=== PATIENT | male | born 1970 | race Caucasian/White ===

== ENCOUNTER 2016-10-23 07:21 | Inpatient (IN) | payer BC ==
[2016-10-23] MEDS ORDERED: NS 0.9% 1000 ML* 1,000 ML IV ONE (07:29)
[2016-10-23] MEDS ORDERED: Aspirin Low Dose CHEW TAB* 81 MG PO ONE (07:29)
[2016-10-23] MEDS ORDERED: Ondansetron INJ* 2 MG/ML VIAL IV ONE (07:29)
[2016-10-23 07:44] LABS: Hematocrit 46 % (42-52); Hemoglobin 15.6 g/dl (14.0-18.0); Mean Corpuscular HGB Conc 34 g/dl (31-36); Mean Corpuscular Hemoglobin 31 pg (27-31); Mean Corpuscular Volume 92 fL (80-94); Mean Platelet Volume 8 um3 (7.4-10.4); Red Blood Count 5.02 10^6/ul (4.0-5.4); Red Cell Distribution Width 13 % (10.5-15); White Blood Count 9.8 10^3/ul (3.5-10.8)
[2016-10-23 08:00] LABS: BUN/Creatinine Ratio 13.8 (8-20); Calcium 9.3 mg/dL (8.6-10.3); EGFR African American 81.1 (>60); EGFR Non-African American 63.1 (>60); Globulin 2.8 g/dL (2-4); Potassium 4.1 mmol/L (3.5-5.0); Total Bilirubin 0.4 mg/dL (0.2-1.0); Total Protein 6.8 g/dL (6.4-8.9)
[2016-10-23 08:05] LABS: Troponin I 0.03 ng/mL (<0.04)
--- NOTE | 2016-10-23 08:21 | RAD ---
INDICATION: Chest pain COMPARISON: None TECHNIQUE: An AP portable view obtained at 0755 hours is submitted. FINDINGS: Bones/Soft Tissues: There are no acute bony findings. Cardiomediastinal: The cardiomediastinal silhouette is normal. Lungs: There are no infiltrates. Pleura: There are no pleural effusions. Other: None IMPRESSION: NO ACTIVE DISEASE.
[2016-10-23 08:34] LABS: T4 5.2 g/dL (6.09-12.23)
[2016-10-23 10:41] LABS: Urine Bilirubin Negative (Negative); Urine Glucose Negative (Negative); Urine Nitrite Negative (Negative)
--- NOTE | 2016-10-23 11:19 | ED ---
Danna Jo Matthew, scribed for Luke Benitez MD on 10/23/16 at 0737 . HPI Chest Pain - HPI Summary HPI Summary: A 46 y/o male presents to the ED with sudden chest pain since this morning. The pain is described as pressure, initially rated 7/10 in severity, but currently rated 3-4/10 in severity. The patient went to his [employer] workout class at 05: 00 this morning, which hes been doing for the past year. The patient states that he did a heavy workout, which ended in cardio. After the workout, he developed sudden chest pain while sitting in his car. He drove home and his symptoms mildly improved; however he smoked a cigarette while at home, which worsened his chest pain. Associated symptoms include nausea, vomiting, and SOB which has improved since onset. The patients chest pain improved after two nitroglycerin. FHx of CAD and father had NM in his 50s. - History of Current Complaint Time Seen by Provider: 10/23/16 07:25 Onset/Duration: Started Hours Ago, Atraumatic, Still Present Timing: Constant Initial Severity: Moderate Current Severity: Moderate Pain Intensity: 4 Pain Scale Used: 0-10 Numeric Chest Pain Location: Mid Sternal Chest Pain Radiates: No Character: Pressure/Squeezing Aggravating Factor(s): Other: - Smoking Alleviating Factor(s): NTG 123 Associated Signs and Symptoms: Positive: Chest Pain, Shortness of Breath - which has improved since onset, Nausea, Vomiting - Allergy/Home Medications Allergies/Adverse Reactions: Allergies Allergy/AdvReac Type Severity Reaction Status Date / Time No Known Allergies Allergy Verified 10/23/16 10:14 PMH/Surg Hx/FS Hx/Imm Hx Previously Healthy: Yes Infectious Disease History: No Infectious Disease History: Denies: Traveled Outside the [place] in Last 30 Days - Family History Known Family History: Positive: Cardiac Disease - Social History Alcohol Use: Weekly Substance Use Type: Reports: None Smoking Status (MU): Current Every Day Smoker Type: Cigarettes Amount Used/How Often: 1 ppd Review of Systems Constitutional: Negative Eyes: Negative ENT: Negative Positive: Chest Pain Positive: Shortness Of Breath - initally but has since resolved Positive: Vomiting, Nausea Genitourinary: Negative Musculoskeletal: Negative Skin: Negative Neurological: Negative Psychological: Normal All Other Systems Reviewed And Are Negative: Yes Physical Exam - Summary Physical Exam Summary: VITAL SIGNS: Reviewed. GENERAL: Patient is a well developed and nourished male who is lying comfortable in the stretcher. Patient is not in any acute respiratory distress. HEAD AND FACE: No signs of trauma. No ecchymosis, hematomas or skull depressions. No sinus tenderness. EYES: PERRLA, EOMI x 2, No injected conjunctiva, no nystagmus. EARS: Hearing grossly intact. Ear canals and tympanic membranes are within normal limits. MOUTH: Oropharynx within normal limits. NECK: Supple, trachea is midline, no adenopathy, no JVD, no carotid bruit, no c- spine tenderness, neck with full ROM. CHEST: Symmetric, no tenderness at palpation LUNGS: Clear to auscultation bilaterally. No wheezing or crackles. CVS: Regular rate and rhythm, S1 and S2 present, no murmurs or gallops appreciated. ABDOMEN: Soft, non-tender. No signs of distention. No rebound no guarding, and no masses palpated. Bowel sounds are normal. EXTREMITIES: FROM in all major joints, no edema, no cyanosis or clubbing. NEURO: Alert and oriented x 3. No acute neurological deficits. Speech is normal and follows commands. SKIN: Dry and warm Triage Information Reviewed: Yes Vital Signs On Initial Exam: Initial Vitals Temp Pulse Resp BP Pulse Ox 96.1 F 65 22 153/133 98 10/23/16 07:26 10/23/16 07:26 10/23/16 07:26 10/23/16 07:26 10/23/16 07:26 Vital Signs Reviewed: Yes - [place] Coma Scale Coma Scale Total: 15 Diagnostics - Vital Signs Vital Signs Temp Pulse Resp BP Pulse Ox 10/23/16 07:30 66 14 116/46 97 10/23/16 07:29 69 19 97 10/23/16 07:28 96.1 F 58 20 153/133 90 10/23/16 07:27 153/133 10/23/16 07:26 96.1 F 65 22 153/133 98 - Laboratory Result Diagrams: 10/23/16 07:35 10/23/16 07:35 Lab Statement: Any lab studies that have been ordered have been reviewed, and results considered in the medical decision making process. - Radiology CXR Xray Interpretation: No Acute Changes - IMPRESSION: NO ACTIVE DISEASE. Radiology Interpretation Completed By: Radiologist - EKG 07:27 Cardiac Rate: Bradycardia - 56 bpm EKG Rhythm: Sinus Bradycardia EKG Interpretation: No ST elevation 09:59 Cardiac Rate: Bradycardia - 48 bpm EKG Rhythm: Sinus Bradycardia EKG Interpretation: No STEMI Chest Pain Course/Dx - Course Assessment/Plan: A 46 y/o male presents to the ED with sudden chest pain since this morning. The pain is described as pressure, initially rated 7/10 in severity, but currently rated 3-4/10 in severity. The patient went to his [employer] workout class at 05:00 this morning, which hes been doing for the past year. The patient states that he did a heavy workout, which ended in cardio. After the workout, he developed sudden chest pain while sitting in his car. He drove home and his symptoms mildly improved; however he smoked a cigarette while at home, which worsened his chest pain. Associated symptoms include nausea, vomiting, and SOB which has improved since onset. The patients chest pain improved after two nitroglycerin. FHx of CAD and father had NM in his 50s. Test results WNL except for CO2 of 21, creatinine of 1.23, glucose 141, troponin of 0.03 and T4 of 5.20. EKG showed sinus bradycardia without ST elevation. In the ED course, the patient was given an aspirin and two nitroglycerins. He reported that after the second NTG his symptoms improved. CXR showed no acute cardiopulmonary disease. D-dimer is less than 200 therefore I have a low suspicion for PE. However, the patients chest pain started after cardiovascular excursive. The pain started on exertion with nausea, vomiting, diaphoresis, and SOB. The patient has no significant co-morbidities, however he is a smoker therefore we need to r/o ACS. The patient developed another episode of chest pain in the ED. We did a second EKG which showed sinus bradycardia without ST. The pain subsided by itself and hes asymptomatic at this time. I discussed the exam findings with Dr. Dorado who accepted the patient for further work-up and management. The patient is hemodynamically stable and A&Ox3. - Chest Pain Differential Diagnosis/HQI/PQRI: Acute NM, ACS, Angina, CHF, Chest Wall, GI Disease, Lower Respiratory Infection, Pulmonary Edema - Diagnoses Provider Diagnoses: Chest pain - Provider Notifications Discussed Care Of Patient With: Dr. Dorado (Hospitalist) at 09:52 -- Notified of patient's history and will admit the patient. Discharge - Discharge Plan Condition: Stable Disposition: ADMITTED TO [facility] Referrals: Patrick Montes MD [Primary Care Provider] - The documentation as recorded by the Danna hercules Matthew accurately reflects the service I personally performed and the decisions made by , Luke Benitez MD.
[2016-10-23] MEDS ORDERED: Acetaminophen TAB* 325 MG PO PRN (11:51)
[2016-10-23] MEDS ORDERED: Ondansetron INJ* 2 MG/ML VIAL IV PRN (11:58)
[2016-10-23] MEDS ORDERED: Nicotine GUM* 2 MG PO PRN (12:05)
[2016-10-23] MEDS ORDERED: Nicotine Inhaler* 10 MG AMP INH PRN (12:05)
[2016-10-23] MEDS: Nicotine PATCH 21 MG/24 HR* PATCH TRANSDERM SCH (12:42)
--- NOTE | 2016-10-23 16:37 | HP ---
HOSPITAL MEDICINE HISTORY AND PHYSICAL: DATE OF ADMISSION: 10/23/16 PRIMARY CARE PHYSICIAN: Dr. Montes. ATTENDING PHYSICIAN: Dr. Tre Dorado *(dictation provided by Peggy Fischer NP). CHIEF COMPLAINT: Chest pain. HISTORY OF PRESENT ILLNESS: Mr. Velasco is a 46-year-old male with no significant past medical history, who presents today to the hospital with concern for chest discomfort. Mr. Velasco states that he has been doing [employer] for the past year. Today, there was a particularly intense workout. Immediately, thereafter on the way home, he developed chest discomfort. He states that it was mid sternal and described as "like someone was sitting on my chest." The patient states that the pain continued until he got home. It seemed to get better, but then he did smoke a cigarette. He is currently a pack-a-day smoker. After smoking, he developed worsening pain. As the pain increased in intensity, he discussed with his who strongly encouraged him to come to the emergency room. The patient called the EMS. While with EMS, he was given 2 nitroglycerin after which he developed some nausea and diaphoresis. They also noted his blood pressure was low systolically in the 60s after the nitroglycerin. By the time he arrived to the emergency room, his first blood pressure was noted to be 153 systolically. He states that he is feeling comfortable at this time and no chest discomfort but that he just feels tired. He denies any other acute complaints. No recent, fevers, chills, cough, nausea other than the described after nitroglycerin, or abdominal pain. In the emergency room, Mr. Velasco had EKG which showed a sinus rhythm to a sinus bradycardia with no evidence of ischemia. His first troponin was 0.03 and his second troponin was 0.06. PAST MEDICAL HISTORY: None. MEDICATIONS: None. ALLERGIES: None. FAMILY HISTORY: The patient reports that his dad had a heart attack in his 50s. His paternal grandfather also had a heart attack and is now . He also has uncles who had heart attack. His mom has a history of diabetes and breast cancer. SOCIAL HISTORY: The patient is a long-term pack-a-day smoker. He quit drinking up a [id number]-half ago. He denies any drug use. Lives with his , who is his healthcare proxy. REVIEW OF SYSTEMS: A 14-point review of systems was completed with Mr. Velasco and all those mentioned above were negative. PHYSICAL EXAMINATION GENERAL: Mr. Velasco is sitting up in the bed. He is in no acute distress. VITAL SIGNS: Temperature 97.0, pulse rate 48, respiratory rate 16, O2 saturation 96% on room air, blood pressure 119/70. LUNGS: Clear to auscultation bilaterally with no accessory muscle use and good aeration. HEART: S1, S2. No murmur, rub, or gallop, and regular. ABDOMEN: Soft, nontender with bowel sounds positive x4. EXTREMITIES: No cyanosis or edema. NEURO: He is alert and oriented x3. He moves all extremities equally. There is no facial asymmetry or focal weakness. Extraocular movements are intact. SKIN: Intact. DIAGNOSTIC STUDIES/LAB DATA: WBC 9.8, hemoglobin 15.6, hematocrit 46, platelet count 183. PTT 24.1, D-dimer less than 200. Sodium 135, potassium 4.1 , chloride 107, serum bicarbonate 21, BUN 17, creatinine 1.23, glucose 141, lactic acid 1.6. Troponin 0.03 at 7:35 and then repeat at 10:30 is 0.06. BNP is 16. TSH is 2.0. Urine shows no evidence of infection. EKG shows sinus rhythm to sinus bradycardia with no evidence of ischemia. Chest x-ray shows no acute intrathoracic abnormality. ASSESSMENT AND PLAN: Mr. Velasco is a 46-year-old male with no significant past medical history presents today to the hospital after experiencing chest pain after an intense workout session. This pain was associated with nausea and diaphoresis but this was in the setting of nitroglycerin administration. Our plans are for observation in the hospital for the followin. Chest pain. The patient does have risk factors of smoking and positive family history. He does exercise regularly without chest pain, but I think that he is a high-risk candidate given his positive troponin. He should stay in the hospital overnight for stress testing in the a.m. He will further troponins as needed until they peak. He will have EKG with his next troponin and with any chest pain, he will go on for an exercise stress test tomorrow. 2. Smoking. The patient will have nicotine replacement as needed. Smoking cessation was stressed. 3. DVT prophylaxis. Early mobility. 4. Disposition. To telemetry floor. TIME SPENT: Approximately 60 minutes was spent on the admission of this patient , more than half time spent with him at the bedside reviewing the events leading up to this hospitalization, performing the physical examination, and reviewing the plan of care. PEGGY FISCHER NP CC: Dr. Montes* [id number]/[facility] #: [id number] JOHN
[2016-10-23] MEDS ORDERED: Atorvastatin* 80 MG TAB PO ONE (17:54)
[2016-10-23] MEDS ORDERED: Heparin VIAL(*) 5000 UNITS/ML VIAL (FIVE THOUSAND) IV SCH (18:00)
[2016-10-23] MEDS ORDERED: Heparin DRIP 25,000 UNITS(*) 25,000 UNITS/500 ML BAG IVPB SCH (18:00)
[2016-10-23] MEDS ORDERED: Ticagrelor* 90 MG TAB PO ONE (18:19)
[2016-10-23] MEDS: Metoprolol Tartrate TAB* 25 MG PO SCH ×2 (18:46→19:18)
[2016-10-23 19:05] LABS: Hematocrit 43 % (42-52); Hemoglobin 14.3 g/dl (14.0-18.0); Mean Corpuscular HGB Conc 33 g/dl (31-36); Mean Corpuscular Hemoglobin 31 pg (27-31); Mean Corpuscular Volume 92 fL (80-94); Mean Platelet Volume 8 um3 (7.4-10.4); Red Blood Count 4.69 10^6/ul (4.0-5.4); Red Cell Distribution Width 13 % (10.5-15); White Blood Count 11.3 10^3/ul (3.5-10.8)
--- NOTE | 2016-10-23 21:57 | CONS ---
CONSULTATION REPORT: DATE OF CONSULT: 10/23/16 REASON FOR CONSULTATION: Chest pressure and elevated troponins. CHIEF COMPLAINT: Chest pressure. HISTORY OF PRESENT ILLNESS: Mr. Velasco is a 46-year-old gentleman with no prior cardiac history. He is an active smoker. The patient was in his usual state of health. He went to [employer] which he has been doing for a year, had an aggressive workout, was driving home and developed pressure in the substernal and across the chest area as if something was sitting on the chest. When he got home, things were better. He had a cigarette and then, things got worse again. So, he presented to the emergency room. In the emergency room, the patient's initial ECG and troponin were unremarkable and he was admitted for observation. Throughout the day, the troponins have progressively elevated, mildly and I was called at 5:45 to see the patient. The patient states in the ambulance he was given nitroglycerin which initially led to diaphoresis and nausea and he is not exactly sure when or what led to resolution of his chest discomfort, but has not recurred. Other than the symptoms with the nitroglycerin, he denies associated symptoms such as dyspnea, neck, jaw, arm pain, or diaphoresis. MEDICATIONS: He was on no outpatient medications. ALLERGIES: The patient has no known drug allergies. FAMILY HISTORY: Strongly positive for early atherosclerotic heart disease. His father had a heart attack in his 50s and he has multiple uncles, cousins. He had a brother who 13 years ago of a motor vehicle accident and no other siblings. 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 He smokes a pack and a half or greater a day, is . REVIEW OF SYSTEMS: Negative for recent infectious symptoms. No fevers, chills , sweats, or change of bowel or bladder habits. His appetite has been good. He denies orthopnea or PND. He is energetic in the daytime and trying to get in shape. All other review of systems is unremarkable. PHYSICAL EXAM: The patient is 6 feet 2 inches, weighs 250 pounds with a BMI of 32. On arrival to the emergency room at 7:26 this morning, the patient was afebrile. Blood pressure 153/133, pulse was 65 and regular, oxygen saturation 98 % on room air. Currently, on medications, the patient's heart rate is 54, respiratory rate is 16, blood pressure 118/61, oxygen saturation 98% on room air , and he is afebrile. General Appearance: Stocky, overweight, but fit- appearing middle-aged gentleman seated in no acute distress. Psychologically, calm, cooperative, pleasant. Neurologically, awake, alert, and oriented to person, place, and time. Cranial nerves II through XII intact. Grossly normal sensory and motor function in the upper and lower extremities and normal gait. Skin: Moist, diaphoretic diffusely (it was hot in the room). HEENT: Pupils are equal and round. Mucous membranes moist. Neck without increased JVP appreciated. Good carotid pulses. No audible bruits. Breath sounds had some inspiratory and expiratory wheezes, more prominent anteriorly then posteriorly. Coronary: Good distant S1, S2. Regular without murmurs or rubs. Abdomen: No epigastric discomfort. No hepatosplenomegaly or masses. Lower extremities have good femoral pulses and good radial pulses and the distal lower extremities are nonedematous. DIAGNOSTIC STUDIES/LAB DATA: Sodium 135, potassium 4.1, chloride 107, bicarb 21 , creatinine 1.23, glucose 141, magnesium 2.0. AST of 17, ALT 18. Troponin #1 0.03, troponin #2 0.06, troponin #3 0.32, and troponin #4 1.34. BNP of 16. TSH 2.0. Thyroxine 5.2. PTT 24.1. D-dimer less than 200. White count 9.8, hemoglobin 15.6, platelets 183. Urinalysis unremarkable. No evidence of infection. . EKG at 0727 this morning shows normal sinus rhythm, 56 beats a minute, QRS axis +75 with normal AV and IV conduction times, subtle upward coving STs in the inferior leads, suggestive of ischemia. ECG #2 at 0959 showed normalization of the coving in the inferior leads. Sinus bradycardia 48 beats a minute, normal STs. ECG done at 1451 shows sinus bradycardia, 48 beats a minute, QRS axis +90, normal AV and IV conduction times, and normal STs. Corrected QT interval 402 milliseconds Chest x-ray shows no active disease. SUMMARY: Sebastian Velasco is a 46-year-old gentleman who presented with a good story for angina with chest pressure after exercise like someone sitting on the chest and mild elevation in troponins. His initial ECG had subtle ST changes and he has atherosclerotic risks of active smoking, strong family history of atherosclerotic heart disease. He appears to have some metabolic syndrome with hyperglycemia (nonfasting). He is overweight. His blood pressure was high on arrival and we will need to check his lipids. I feel he should get a heart catheterization in the morning and the indications , risks,and benefits of the procedure were discussed in depth with the patient and he is amenable to proceeding. I agree with aggressive medical management in place including heparin, aspirin, beta-blockade, and initiation of statin empirically. After discussion with the local telephone operator, we will also initiate Brilinta. I told the patient he had to stop smoking, but he may need assistance. Additional recommendations will be made pending his clinical course and response to the above measures and the results of his cardiac catheterization. He may benefit from an echocardiogram if a ventriculogram is not done with the cardiac catheterization. CC: Dr. Montes; Hospitalist Service* [id number]/[facility] #: [id number] [facility]ERSohan
[2016-10-24] MEDS ORDERED: diPHENhydraMINE PO* 25 MG PO ONE (07:14)
[2016-10-24] MEDS ORDERED: Diazepam TAB(*) 5 MG PO ONE (07:14)
[2016-10-24] MEDS ORDERED: NS 0.9% 1000 ML* 1,000 ML IV SCH ×2 (07:15→10:45)
[2016-10-24] MEDS: Ticagrelor* 90 MG TAB PO SCH ×2 (07:34→21:19)
[2016-10-24] MEDS: Aspirin Low Dose CHEW TAB* 81 MG PO SCH (07:34)
[2016-10-24] MEDS: Metoprolol Tartrate TAB* 25 MG PO SCH ×2 (07:34→21:19)
[2016-10-24 07:40] LABS: Troponin I 5.93 ng/mL (<0.04)
[2016-10-24] MEDS ORDERED: fentaNYL* 50 MCG/ML 2 ML VIAL (100 MCG VIAL) ONE (07:54)
[2016-10-24] MEDS ORDERED: Lidocaine 1% INJ* 10 MG/ML 30 ML SDV ONE (07:55)
[2016-10-24] MEDS ORDERED: Iohexol 350 (CONTRAST) 200 ML MDV IV ONE ×3 (07:55→10:11)
[2016-10-24] MEDS ORDERED: VERAPAMIL 2.5 MG/ML 4 ML VIAL ONE (07:55)
[2016-10-24] MEDS ORDERED: Heparin(*) 1000 UNIT/ML 10 ML VIAL CATH LAB IV ONE (07:55)
[2016-10-24] MEDS ORDERED: Midazolam* 1 MG/ML 5 ML VIAL (5 MG) ONE (07:55)
[2016-10-24] MEDS ORDERED: Heparin 2 UNITS/ML IVPREMIX* 3,000 ML IV ONE (07:55)
[2016-10-24] MEDS ORDERED: nitroGLYCERIN DRIP* 250 ML ONE (07:55)
[2016-10-24] MEDS: Nicotine PATCH 21 MG/24 HR* PATCH TRANSDERM SCH (08:26)
[2016-10-24] MEDS ORDERED: Bivalirudin(*) 250 MG VIAL ONE (08:56)
[2016-10-24] MEDS ORDERED: Aspirin TAB* 325 MG PO SCH (09:00)
[2016-10-24] MEDS ORDERED: Eptifibatide (*) 0 ML ONE (09:46)
[2016-10-24] MEDS ORDERED: Eptifibatide IV (Load dose)(*) 2 MG/ML 10 ml VIAL ONE (09:50)
[2016-10-24] MEDS ORDERED: NitroPRUSSide* 25 MG/ML 2 ML VIAL IVPB ONE (10:01)
[2016-10-24] MEDS ORDERED: Nitroglycerin TAB 0.4 MG* 0.4 MG TAB SL PRN (10:35)
[2016-10-24] MEDS ORDERED: oxyCODONE/Acetamin 5/325 MG* TAB PO PRN (10:37)
[2016-10-24] MEDS ORDERED: Zolpidem TAB* 5 MG PO PRN (10:37)
--- NOTE | 2016-10-24 16:19 | PN ---
Subjective Date of Service: 10/24/16 Interval History: No chest pain, cough, SOB. No new c/o. Objective Active Medications: Acetaminophen (Tylenol Tab*) 650 mg PO Q6H PRN PRN Reason: PAIN Aspirin (Aspirin Low Dose Tab*) 81 mg PO 0700 [facility] Last Admin: 10/24/16 07:34 Dose: 81 mg Atorvastatin Calcium (Lipitor*) 80 mg PO 2100 ONE Stop: 10/24/16 21:01 Heparin Sodium (Porcine) (Heparin Vial(*)) 0 units IV .PER PROTOCOL [facility] PRN Reason: Protocol Last Admin: 10/23/16 18:22 Dose: 8,500 units Heparin Sodium/Dextrose (Heparin Drip 25,000 Units(*)) 25,000 units in 500 mls @ 0 mls/hr IVPB .PER RATE [facility]; Per Protocol PRN Reason: Protocol Last Admin: 10/23/16 18:22 Dose: 18 mls/hr Sodium Chloride (Ns 0.9% 1000 Ml*) 1,000 mls @ 100 mls/hr IV .per rate [facility] Last Admin: 10/24/16 07:35 Dose: 100 mls/hr Sodium Chloride (Ns 0.9% 1000 Ml*) 1,000 mls @ 100 mls/hr IV .per rate [facility] Stop: 10/25/16 06:00 Metoprolol Tartrate (Lopressor Tab*) 12.5 mg PO BID [facility] Last Admin: 10/24/16 07:34 Dose: 12.5 mg Nicotine (Nicotine Inhaler*) 10 mg INH Q2H PRN PRN Reason: CRAVING Nicotine (Nicotine Patch 21 Mg/24 Hr*) 1 patch TRANSDERM DAILY [facility] Last Admin: 10/24/16 08:26 Dose: Not Given Nicotine Polacrilex (Nicotine Gum*) 2 mg PO Q2H PRN PRN Reason: CRAVING Nitroglycerin (Nitroglycerin Tab 0.4 Mg*) 0.4 mg SL Q5M PRN PRN Reason: ANGINA Ondansetron HCl (Zofran Inj*) 4 mg IV Q6H PRN PRN Reason: NAUSEA Oxycodone/Acetaminophen (Percocet 5/325 Tab*) 1 tab PO Q6H PRN PRN Reason: PAIN Pharmacy Profile Note (Nicotine Patch Removal Note*) 1 note PATCH OFF 2099 [facility] Ticagrelor (Brilinta*) 90 mg PO 0700,2100 [facility] Last Admin: 10/24/16 07:34 Dose: 90 mg Zolpidem Tartrate (Ambien Tab*) 5 mg PO BEDTIME PRN PRN Reason: INSOMNIA Vital Signs 10/24/16 10/24/16 10/24/16 10:37 10:40 10:45 Temperature 98 F Pulse Rate 47 49 Respiratory 19 17 14 Rate Blood Pressure 133/83 104/68 (mmHg) O2 Sat by Pulse 99 99 Oximetry 10/24/16 10/24/16 10/24/16 11:00 11:20 11:32 Temperature Pulse Rate 46 52 51 Respiratory 19 21 20 Rate Blood Pressure 119/79 150/75 150/75 (mmHg) O2 Sat by Pulse 99 95 98 Oximetry 10/24/16 10/24/16 10/24/16 11:49 11:50 12:00 Temperature 98 F 98 F Pulse Rate 50 44 46 Respiratory 17 17 15 Rate Blood Pressure 134/79 134/79 119/70 (mmHg) O2 Sat by Pulse 99 99 98 Oximetry 10/24/16 10/24/16 10/24/16 12:15 12:19 13:00 Temperature Pulse Rate 48 48 48 Respiratory 3 18 18 Rate Blood Pressure 106/56 160/56 122/63 (mmHg) O2 Sat by Pulse 98 97 97 Oximetry 10/24/16 10/24/16 10/24/16 13:58 14:00 14:01 Temperature Pulse Rate 49 Respiratory 16 20 Rate Blood Pressure 109/62 106/62 (mmHg) O2 Sat by Pulse 97 Oximetry 10/24/16 10/24/16 10/24/16 14:43 15:00 15:06 Temperature Pulse Rate 56 Respiratory 17 20 13 Rate Blood Pressure (mmHg) O2 Sat by Pulse 98 Oximetry 10/24/16 15:48 Temperature 98.7 F Pulse Rate Respiratory Rate Blood Pressure (mmHg) O2 Sat by Pulse Oximetry Oxygen Devices in Use Now: None Appearance: Alert, sitting up in bed. R wrist guard in place. In good spirits. Looks comfortable. Eyes: No Scleral Icterus Neck: NL Appearance and Movements; NL JVP, No Thyroid Enlargement, Masses Respiratory: Symmetrical Chest Expansion and Respiratory Effort, Clear to Auscultation, Clear to Percussion Extremities: No Edema, No Clubbing, Cyanosis, - Skin: No Nodules or Sclerosis, - - ecchymosis L axillary area, linear edge Neurological: Alert and Oriented x 3, NL Sensation Result Diagrams: 10/23/16 18:44 10/23/16 21:15 Microbiology and Other Data: Microbiology 10/24/16 11:15 Nasal Screen MRSA (PCR)(XOCHILT) - Final Nasal Mrsa Negative Assess/Plan/Problems-Billing Assessment: - Patient Problems (1) ACS (acute coronary syndrome) Current Visit: Yes Status: Acute Code(s): I24.9 - ACUTE ISCHEMIC HEART DISEASE, UNSPECIFIED SNOMED Code(s): 847642651 Comment: Continue ASA, ticagrelor, statin, heparin, BB. (2) Tobacco abuse Current Visit: Yes Status: Acute Code(s): Z72.0 - TOBACCO USE SNOMED Code( s): 373832603 Comment: Pt advised to quit smoking and avoid second hand smoke. No one else in his home smokes.
[2016-10-24 19:20] LABS: Hematocrit 40 % (42-52); Hemoglobin 13.3 g/dl (14.0-18.0); Mean Corpuscular HGB Conc 33 g/dl (31-36); Mean Corpuscular Hemoglobin 31 pg (27-31); Mean Corpuscular Volume 92 fL (80-94); Mean Platelet Volume 9 um3 (7.4-10.4); Red Blood Count 4.32 10^6/ul (4.0-5.4); Red Cell Distribution Width 14 % (10.5-15); White Blood Count 9.3 10^3/ul (3.5-10.8)
[2016-10-24] MEDS ORDERED: Atorvastatin* 80 MG TAB PO ONE (21:00)
[2016-10-24] MEDS ORDERED: Nicotine Patch Removal NOTE PATCH OFF SCH (21:00)
[2016-10-25] MEDS: Aspirin Low Dose CHEW TAB* 81 MG PO SCH (06:05)
[2016-10-25] MEDS: Ticagrelor* 90 MG TAB PO SCH ×2 (06:05→22:04)
[2016-10-25 06:29] LABS: Hematocrit 41 % (42-52); Hemoglobin 13.9 g/dl (14.0-18.0); Mean Corpuscular HGB Conc 34 g/dl (31-36); Mean Corpuscular Hemoglobin 31 pg (27-31); Mean Corpuscular Volume 92 fL (80-94); Mean Platelet Volume 8 um3 (7.4-10.4); Red Blood Count 4.44 10^6/ul (4.0-5.4); Red Cell Distribution Width 13 % (10.5-15)
[2016-10-25 06:40] LABS: Albumin 3.6 g/dL (3.2-5.2); Calcium 8.9 mg/dL (8.6-10.3); EGFR African American 85.9 (>60); EGFR Non-African American 66.8 (>60); Globulin 2.6 g/dL (2-4); HDL Cholesterol 21.2 mg/dL; Potassium 4.2 mmol/L (3.5-5.0); Total Bilirubin 0.6 mg/dL (0.2-1.0); Total Protein 6.2 g/dL (6.4-8.9)
[2016-10-25 08:05] LABS: Troponin I 3.26 ng/mL (<0.04)
--- NOTE | 2016-10-25 09:27 | PN ---
Subjective Date of Service: 10/25/16 Interval History: f/u AMI no chest pain, dyspnea, lightheadedness or syncope No wrist pain tele: Sinus bradycardia 30's at night overnight, 50's at rest Medications Active Medications: Acetaminophen (Tylenol Tab*) 650 mg PO Q6H PRN PRN Reason: PAIN Aspirin (Aspirin Low Dose Tab*) 81 mg PO 0700 [facility] Last Admin: 10/25/16 06:05 Dose: 81 mg Sodium Chloride (Ns 0.9% 1000 Ml*) 1,000 mls @ 100 mls/hr IV .per rate [facility] Last Admin: 10/24/16 07:35 Dose: 100 mls/hr Metoprolol Tartrate (Lopressor Tab*) 12.5 mg PO BID [facility] Last Admin: 10/24/16 21:19 Dose: 12.5 mg Nicotine (Nicotine Inhaler*) 10 mg INH Q2H PRN PRN Reason: CRAVING Nicotine Polacrilex (Nicotine Gum*) 2 mg PO Q2H PRN PRN Reason: CRAVING Nitroglycerin (Nitroglycerin Tab 0.4 Mg*) 0.4 mg SL Q5M PRN PRN Reason: ANGINA Ondansetron HCl (Zofran Inj*) 4 mg IV Q6H PRN PRN Reason: NAUSEA Oxycodone/Acetaminophen (Percocet 5/325 Tab*) 1 tab PO Q6H PRN PRN Reason: PAIN Ticagrelor (Brilinta*) 90 mg PO 0700,2100 [facility] Last Admin: 10/25/16 06:05 Dose: 90 mg Zolpidem Tartrate (Ambien Tab*) 5 mg PO BEDTIME PRN PRN Reason: INSOMNIA Objective Vital Signs: Temp Pulse Resp BP Pulse Ox 97.9 F 44 19 128/66 99 10/25/16 07:44 10/25/16 08:30 10/25/16 08:30 10/25/16 08:00 10/25/16 08:30 Oxygen Devices in Use Now: None Appearance: nad, pleasant Ears/Nose/Mouth/Throat: Clear Oropharnyx, Mucous Membranes Moist Neck: NL Appearance and Movements; NL JVP Respiratory: Symmetrical Chest Expansion and Respiratory Effort, Clear to Auscultation Cardiovascular: NL Sounds; No Murmurs; No JVD, RRR, No Edema Abdominal: NL Sounds; No Tenderness; No Distention Extremities: No Edema Skin: No Rash or Ulcers, - - right wrist no swelling or pain, radial pulse not felt distal to puncture site, hand well perfused, brisk capillary refill Neurological: Alert and Oriented x 3 Laboratory Results: 10/25/16 06:15 10/25/16 06:15 APTT 45.8 seconds (26.0-36.3) H 10/24/16 02:47 Total Bilirubin 0.60 mg/dL (0.2-1.0) 10/25/16 06:15 AST 25 U/L (13-39) 10/25/16 06:15 ALT 20 U/L (7-52) 10/25/16 06:15 Alkaline Phosphatase 62 U/L (34-104) 10/25/16 06:15 CK-MB (CK-2) 2.7 ng/mL (0.6-6.3) 10/23/16 07:35 B-Natriuretic Peptide 16 pg/mL (-100) 10/23/16 07:35 Total Protein 6.2 g/dL (6.4-8.9) L 10/25/16 06:15 Albumin 3.6 g/dL (3.2-5.2) 10/25/16 06:15 Globulin 2.6 g/dL (2-4) 10/25/16 06:15 Albumin/Globulin Ratio 1.4 (1-3) 10/25/16 06:15 Triglycerides 132 mg/dL 10/25/16 06:15 Cholesterol 131 mg/dL 10/25/16 06:15 LDL Cholesterol 83 mg/dL 10/25/16 06:15 HDL Cholesterol 21.2 mg/dL 10/25/16 06:15 TSH 2.00 mcIU/mL (0.34-5.60) 10/23/16 07:35 10/25/16 06:15 Troponin I 3.26 H* EKG Data: EKG 10/25/2016: Sinus bradycardia 46 bpm, deep TWI inferior leads likely from recent inferior wall NC Assessment/Plan Mr. Velasco is a 46 year old man with a history of tobacco use and family hx CAD presents with inferior wall NC s/p PCI to single vessel occluded and collateralized proximal RCA vessel, LVEF 45% with inferobasal hypokinesis as per verbal report, peak cTnI 6 - Continue aspirin 81 mg PO daily - Continue brillinta 90 mg PO BID - Continue atorvastatin 80 mg PO daily, LDL noted - Start lisinopril 2.5 mg PO daily (ordered) - decrease BB to toprol 12.5 mg PO daily - D/w Dr. Mckeon, recommend transfer to telemetry if remains stable can d/c tomorrow (Friday) AM - Will arrange cardiology follow up Thank you for allowing me to participate in the cardiovascular care of this patient. Please do not hesitate to contact me with questions or concerns.
[2016-10-25] MEDS: Lisinopril TAB* 5 MG PO SCH (10:53)
[2016-10-25] MEDS: Metoprolol Succinate XL TAB* 25 MG PO SCH (10:54)
[2016-10-25] MEDS: Metoprolol Tartrate TAB* 25 MG PO SCH (13:25)
--- NOTE | 2016-10-25 13:27 | PN ---
Subjective Date of Service: 10/25/16 Interval History: No cough, SOB, chest pain. No new c/o. Objective Active Medications: Acetaminophen (Tylenol Tab*) 650 mg PO Q6H PRN PRN Reason: PAIN Aspirin (Aspirin Low Dose Tab*) 81 mg PO 0700 [facility] Last Admin: 10/25/16 06:05 Dose: 81 mg Atorvastatin Calcium (Lipitor*) 80 mg PO 1700 [facility] Lisinopril (Prinivil Tab*) 2.5 mg PO DAILY [facility] Last Admin: 10/25/16 10:53 Dose: 2.5 mg Metoprolol Succinate (Toprol Xl Tab*) 12.5 mg PO DAILY [facility] Last Admin: 10/25/16 10:54 Dose: 12.5 mg Nicotine (Nicotine Inhaler*) 10 mg INH Q2H PRN PRN Reason: CRAVING Nicotine Polacrilex (Nicotine Gum*) 2 mg PO Q2H PRN PRN Reason: CRAVING Nitroglycerin (Nitroglycerin Tab 0.4 Mg*) 0.4 mg SL Q5M PRN PRN Reason: ANGINA Ondansetron HCl (Zofran Inj*) 4 mg IV Q6H PRN PRN Reason: NAUSEA Oxycodone/Acetaminophen (Percocet 5/325 Tab*) 1 tab PO Q6H PRN PRN Reason: PAIN Ticagrelor (Brilinta*) 90 mg PO 0700,2100 [facility] Last Admin: 10/25/16 06:05 Dose: 90 mg Zolpidem Tartrate (Ambien Tab*) 5 mg PO BEDTIME PRN PRN Reason: INSOMNIA Vital Signs 10/24/16 10/24/16 10/24/16 13:58 14:00 14:01 Temperature Pulse Rate 49 Respiratory 16 20 Rate Blood Pressure 109/62 106/62 (mmHg) O2 Sat by Pulse 97 Oximetry 10/24/16 10/24/16 10/24/16 14:43 15:00 15:06 Temperature Pulse Rate 56 Respiratory 17 20 13 Rate Blood Pressure (mmHg) O2 Sat by Pulse 98 Oximetry 10/24/16 10/24/16 10/24/16 15:48 16:00 16:19 Temperature 98.7 F Pulse Rate 50 Respiratory 15 21 Rate Blood Pressure 112/62 (mmHg) O2 Sat by Pulse 97 Oximetry 10/24/16 10/24/16 10/24/16 16:20 17:00 17:27 Temperature Pulse Rate Respiratory 23 Rate Blood Pressure 120/75 81/50 (mmHg) O2 Sat by Pulse Oximetry 10/24/16 10/24/16 10/24/16 17:59 19:00 19:28 Temperature 98.9 F Pulse Rate 45 51 Respiratory 16 21 Rate Blood Pressure 110/80 (mmHg) O2 Sat by Pulse 96 97 Oximetry 10/24/16 10/24/16 10/24/16 20:00 21:00 21:19 Temperature Pulse Rate 51 54 47 Respiratory 16 23 16 Rate Blood Pressure 120/58 105/46 (mmHg) O2 Sat by Pulse 97 96 94 Oximetry 10/24/16 10/24/16 10/24/16 21:55 22:00 22:17 Temperature Pulse Rate 45 46 47 Respiratory 17 17 17 Rate Blood Pressure 119/57 119/57 114/59 (mmHg) O2 Sat by Pulse 94 95 94 Oximetry 10/24/16 10/24/16 10/24/16 22:22 23:00 23:43 Temperature 98.0 F Pulse Rate 46 47 Respiratory 17 19 Rate Blood Pressure 123/51 (mmHg) O2 Sat by Pulse 94 96 Oximetry 10/25/16 10/25/16 10/25/16 00:00 00:01 01:00 Temperature Pulse Rate 45 46 45 Respiratory 17 16 19 Rate Blood Pressure 98/52 92/45 (mmHg) O2 Sat by Pulse 95 95 96 Oximetry 10/25/16 10/25/16 10/25/16 02:00 03:00 03:50 Temperature 97.8 F Pulse Rate 56 41 Respiratory 19 17 Rate Blood Pressure 112/62 104/57 (mmHg) O2 Sat by Pulse 98 96 Oximetry 10/25/16 10/25/16 10/25/16 04:00 04:09 04:12 Temperature Pulse Rate 51 43 41 Respiratory 17 17 16 Rate Blood Pressure 114/60 (mmHg) O2 Sat by Pulse 97 97 96 Oximetry 10/25/16 10/25/16 10/25/16 05:00 06:00 06:30 Temperature Pulse Rate 43 43 Respiratory 16 17 18 Rate Blood Pressure 109/62 116/67 (mmHg) O2 Sat by Pulse 95 97 Oximetry 10/25/16 10/25/16 10/25/16 06:45 07:00 07:15 Temperature Pulse Rate 46 47 44 Respiratory 16 17 18 Rate Blood Pressure 136/73 (mmHg) O2 Sat by Pulse 97 98 97 Oximetry 10/25/16 10/25/16 10/25/16 07:30 07:44 07:45 Temperature 97.9 F Pulse Rate 43 50 Respiratory 17 15 Rate Blood Pressure (mmHg) O2 Sat by Pulse 97 99 Oximetry 10/25/16 10/25/16 10/25/16 08:00 08:15 08:30 Temperature Pulse Rate 45 45 44 Respiratory 14 21 19 Rate Blood Pressure 128/66 (mmHg) O2 Sat by Pulse 99 97 99 Oximetry 10/25/16 10/25/16 10/25/16 08:45 09:00 09:15 Temperature Pulse Rate 52 53 55 Respiratory 12 Rate Blood Pressure 121/67 (mmHg) O2 Sat by Pulse 97 99 99 Oximetry 10/25/16 10/25/16 10/25/16 09:30 09:45 10:00 Temperature Pulse Rate 57 56 48 Respiratory 12 Rate Blood Pressure 116/61 (mmHg) O2 Sat by Pulse 99 98 97 Oximetry 10/25/16 10/25/16 10:15 12:11 Temperature 97.4 F Pulse Rate 51 54 Respiratory 16 Rate Blood Pressure 139/70 (mmHg) O2 Sat by Pulse 98 99 Oximetry Oxygen Devices in Use Now: None Appearance: Alert, pacing in his room. In good spirits. Looks comfortable. Eyes: No Scleral Icterus Neck: NL Appearance and Movements; NL JVP, No Thyroid Enlargement, Masses Respiratory: Symmetrical Chest Expansion and Respiratory Effort, Clear to Auscultation, Clear to Percussion Cardiovascular: NL Sounds; No Murmurs; No JVD, RRR, No Edema, - Extremities: No Edema, No Clubbing, Cyanosis, - Skin: No Rash or Ulcers, No Nodules or Sclerosis Neurological: Alert and Oriented x 3, NL Sensation Result Diagrams: 10/25/16 06:15 10/25/16 06:15 Microbiology and Other Data: Microbiology 10/24/16 11:15 Nasal Screen MRSA (PCR)(XOCHILT) - Final Nasal Mrsa Negative Assess/Plan/Problems-Billing Assessment: - Patient Problems (1) ACS (acute coronary syndrome) Current Visit: Yes Status: Acute Code(s): I24.9 - ACUTE ISCHEMIC HEART DISEASE, UNSPECIFIED SNOMED Code(s): 159131223 Comment: Continue ASA, ticagrelor, statin, heparin, BB, ACEI. (2) Tobacco abuse Current Visit: Yes Status: Acute Code(s): Z72.0 - TOBACCO USE SNOMED Code( s): 249877874 Comment: Pt advised to quit smoking and avoid second hand smoke. No one else in his home smokes.
[2016-10-25] MEDS ORDERED: Atorvastatin* 80 MG TAB PO SCH (17:00)
[2016-10-26] MEDS: Aspirin Low Dose CHEW TAB* 81 MG PO SCH (07:18)
[2016-10-26] MEDS: Ticagrelor* 90 MG TAB PO SCH (07:18)
[2016-10-26 07:46] VITALS: BP 99/74
[2016-10-26] MEDS: Lisinopril TAB* 5 MG PO SCH (08:27)
[2016-10-26] MEDS: Metoprolol Succinate XL TAB* 25 MG PO SCH (08:30)
--- NOTE | 2016-10-26 09:47 | DCNOTE ---
Subjective Date of Service: 10/26/16 Interval History: No new c/o, anxious to go home. Objective Active Medications: Acetaminophen (Tylenol Tab*) 650 mg PO Q6H PRN PRN Reason: PAIN Aspirin (Aspirin Low Dose Tab*) 81 mg PO 0700 [facility] Last Admin: 10/26/16 07:18 Dose: 81 mg Atorvastatin Calcium (Lipitor*) 80 mg PO 1700 [facility] Last Admin: 10/25/16 17:28 Dose: 80 mg Lisinopril (Prinivil Tab*) 2.5 mg PO DAILY [facility] Last Admin: 10/26/16 08:27 Dose: 2.5 mg Metoprolol Succinate (Toprol Xl Tab*) 12.5 mg PO DAILY [facility] Last Admin: 10/26/16 08:30 Dose: 12.5 mg Nicotine (Nicotine Inhaler*) 10 mg INH Q2H PRN PRN Reason: CRAVING Nicotine Polacrilex (Nicotine Gum*) 2 mg PO Q2H PRN PRN Reason: CRAVING Nitroglycerin (Nitroglycerin Tab 0.4 Mg*) 0.4 mg SL Q5M PRN PRN Reason: ANGINA Ondansetron HCl (Zofran Inj*) 4 mg IV Q6H PRN PRN Reason: NAUSEA Oxycodone/Acetaminophen (Percocet 5/325 Tab*) 1 tab PO Q6H PRN PRN Reason: PAIN Ticagrelor (Brilinta*) 90 mg PO 0700,2100 [facility] Last Admin: 10/26/16 07:18 Dose: 90 mg Zolpidem Tartrate (Ambien Tab*) 5 mg PO BEDTIME PRN PRN Reason: INSOMNIA Vital Signs 10/25/16 10/25/16 10/25/16 10:00 10:15 12:11 Temperature 97.4 F Pulse Rate 48 51 54 Respiratory 12 16 Rate Blood Pressure 116/61 139/70 (mmHg) O2 Sat by Pulse 97 98 99 Oximetry 10/25/16 10/25/16 10/25/16 15:51 16:00 20:00 Temperature 98.0 F Pulse Rate 48 48 Respiratory 16 18 Rate Blood Pressure 111/57 (mmHg) O2 Sat by Pulse 99 Oximetry 10/25/16 10/26/16 10/26/16 20:33 00:14 03:06 Temperature 97.9 F 97.4 F 99.3 F Pulse Rate 51 46 48 Respiratory 18 16 16 Rate Blood Pressure 130/83 113/48 113/57 (mmHg) O2 Sat by Pulse 100 98 97 Oximetry 10/26/16 10/26/16 07:46 08:00 Temperature 97.4 F Pulse Rate 47 Respiratory 18 18 Rate Blood Pressure 99/74 (mmHg) O2 Sat by Pulse 100 Oximetry Oxygen Devices in Use Now: None Appearance: Alert, in a chair. In good spirits. Look comfortable. Extremities: No Edema, No Clubbing, Cyanosis, - Skin: No Rash or Ulcers, No Nodules or Sclerosis, - Neurological: Alert and Oriented x 3, NL Sensation Result Diagrams: 10/25/16 06:15 10/25/16 06:15 Microbiology and Other Data: Microbiology 10/24/16 11:15 Nasal Screen MRSA (PCR)(XOCHILT) - Final Nasal Mrsa Negative Assess/Plan/Problems-Billing Assessment: - Patient Problems (1) ACS (acute coronary syndrome) Current Visit: Yes Status: Acute Code(s): I24.9 - ACUTE ISCHEMIC HEART DISEASE, UNSPECIFIED SNOMED Code(s): 366674069 Comment: Continue ASA, ticagrelor, statin, heparin, BB, ACEI. NTG SL PRN. Work and exercise discussed by Dr. Agudelo. (2) Tobacco abuse Current Visit: Yes Status: Acute Code(s): Z72.0 - TOBACCO USE SNOMED Code( s): 232459140 Comment: Pt again advised to quit smoking and avoid second hand smoke. No one else in his home smokes.
--- NOTE | 2016-10-26 09:48 | PN ---
Progress Note - Progress Note Note: Time spent on discharge 45 minutes.
--- NOTE | 2016-10-26 10:50 | PN ---
Subjective Date of Service: 10/26/16 - CC: Chest pain. Interval History: No c/o. No recurrence of chest heaviness post stent. No c/o with his wrist. Sleeping well. He is committed to not smoking. No dyspnea in fact better, no wheezing now that he isn't smoking. Medications Active Medications: Acetaminophen (Tylenol Tab*) 650 mg PO Q6H PRN PRN Reason: PAIN Aspirin (Aspirin Low Dose Tab*) 81 mg PO 0700 [facility] Last Admin: 10/26/16 07:18 Dose: 81 mg Atorvastatin Calcium (Lipitor*) 80 mg PO 1700 [facility] Last Admin: 10/25/16 17:28 Dose: 80 mg Lisinopril (Prinivil Tab*) 2.5 mg PO DAILY [facility] Last Admin: 10/26/16 08:27 Dose: 2.5 mg Metoprolol Succinate (Toprol Xl Tab*) 12.5 mg PO DAILY [facility] Last Admin: 10/26/16 08:30 Dose: 12.5 mg Nicotine (Nicotine Inhaler*) 10 mg INH Q2H PRN PRN Reason: CRAVING Nicotine Polacrilex (Nicotine Gum*) 2 mg PO Q2H PRN PRN Reason: CRAVING Nitroglycerin (Nitroglycerin Tab 0.4 Mg*) 0.4 mg SL Q5M PRN PRN Reason: ANGINA Ondansetron HCl (Zofran Inj*) 4 mg IV Q6H PRN PRN Reason: NAUSEA Oxycodone/Acetaminophen (Percocet 5/325 Tab*) 1 tab PO Q6H PRN PRN Reason: PAIN Ticagrelor (Brilinta*) 90 mg PO 0700,2100 [facility] Last Admin: 10/26/16 07:18 Dose: 90 mg Zolpidem Tartrate (Ambien Tab*) 5 mg PO BEDTIME PRN PRN Reason: INSOMNIA Objective Vital Signs: Temp Pulse Resp BP Pulse Ox 97.4 F 47 18 99/74 100 10/26/16 07:46 10/26/16 07:46 10/26/16 08:00 10/26/16 07:46 10/26/16 07:46 Oxygen Devices in Use Now: None Appearance: nad, pleasant, walking in his room. Eyes: No Scleral Icterus, PERRLA Ears/Nose/Mouth/Throat: Clear Oropharnyx, Mucous Membranes Moist Neck: NL Appearance and Movements; NL JVP Respiratory: Symmetrical Chest Expansion and Respiratory Effort, Clear to Auscultation Cardiovascular: NL Sounds; No Murmurs; No JVD, RRR, No Edema Abdominal: NL Sounds; No Tenderness; No Distention Extremities: No Edema - right wrist no hematoma, good pulse, non tender at cath site. Skin: No Rash or Ulcers, - - right wrist no swelling or pain, radial pulse not felt distal to puncture site, hand well perfused, brisk capillary refill Neurological: Alert and Oriented x 3, NL Gait, NL Muscle Strength and Tone Lines/Tubes/Other Access: Clean, Dry and Intact Peripheral IV Laboratory Results: 10/25/16 06:15 10/25/16 06:15 APTT 45.8 seconds (26.0-36.3) H 10/24/16 02:47 Total Bilirubin 0.60 mg/dL (0.2-1.0) 10/25/16 06:15 AST 25 U/L (13-39) 10/25/16 06:15 ALT 20 U/L (7-52) 10/25/16 06:15 Alkaline Phosphatase 62 U/L (34-104) 10/25/16 06:15 CK-MB (CK-2) 2.7 ng/mL (0.6-6.3) 10/23/16 07:35 B-Natriuretic Peptide 16 pg/mL (-100) 10/23/16 07:35 Total Protein 6.2 g/dL (6.4-8.9) L 10/25/16 06:15 Albumin 3.6 g/dL (3.2-5.2) 10/25/16 06:15 Globulin 2.6 g/dL (2-4) 10/25/16 06:15 Albumin/Globulin Ratio 1.4 (1-3) 10/25/16 06:15 Triglycerides 132 mg/dL 10/25/16 06:15 Cholesterol 131 mg/dL 10/25/16 06:15 LDL Cholesterol 83 mg/dL 10/25/16 06:15 HDL Cholesterol 21.2 mg/dL 10/25/16 06:15 TSH 2.00 mcIU/mL (0.34-5.60) 10/23/16 07:35 10/25/16 06:15 Troponin I 3.26 H* Assessment/Plan Mr. Velasco is a 46 year old man with a history of tobacco use and family hx CAD presents with inferior wall WA s/p PCI to single vessel occluded and collateralized proximal RCA vessel, LVEF 45% with inferobasal hypokinesis as per verbal report, peak cTnI 6 No recurrence of angina post stent. Primary risk factors are cigarettes and family history. Smoking cessation again discussed with the patient, he is going to stop. OK for discharge today on current cardiac medications: - Continue aspirin 81 mg PO daily - Continue brillinta 90 mg PO BID - Continue atorvastatin 80 mg PO daily, LDL noted - lisinopril 2.5 mg PO daily (ordered) - toprol 12.5 mg PO daily Dispense 5 [place] [facility] [place] The patient will follow up with Dr. Sawyer Hinojosa [phone] The patient should get enrolled in cardiac rehab.
--- NOTE | 2016-10-26 23:12 | DS ---
CC: Dr. Montes; Sawyer Hinojosa DO DISCHARGE SUMMARY: DATE OF ADMISSION: 10/24/16 DATE OF DISCHARGE: 10/26/16 HISTORY: This is a 46-year-old man presenting with chest pain. The history is detailed in the admi ssion note. He had elevated troponin. The morning after admission, he underwent cardiac catheteriz ation, he had complete occlusion of the right coronary, he had good collaterals. The right coronary was stented. His troponin khris from 0.06 in the emergency room to a peak of 5.93. He had preserva tion of left ventricular systolic function. He did well after the stent procedure. He was started on low dose of metoprolol and lisinopril. He was put on ticagrelor, aspirin and atorvastatin. I note that in the first hour in the hospital, hi s highest heart rate was 69. After the first hour in the hospital, his heart rate never reached 60. When he had 12.5 mg of metoprolol at bedtime, his heart rate while sleeping went into the 30s, so the evening dose was discontinued. He continues to have heart rates in the 40s and 50s, I believe t his is really his baseline. He is completely asymptomatic with this. DISCHARGE DIAGNOSES: 1. Acute coronary syndrome. 2. Tobacco use disorder. DISCHARGE MEDICATIONS: 1. Acetaminophen 650 mg every 6 hours p.r.n. 2. Aspirin 81 mg daily. 3. Atorvastatin 80 mg daily at 5 p.m. 4. Lisinopril 2.5 mg daily. 5. Metoprolol succinate 12.5 mg daily. 6. Nicotine gum 2 mg every 2 hours p.r.n. 7. Nitroglycerin 0.4 mg sublingual every 5 minutes p.r.n. 8. Ticagrelor 90 mg b.i.d. [id number]/[facility] #: [id number]
--- NOTE | 2016-10-29 22:39 | CATH ---
CARDIAC CATHETERIZATION AND INTERVENTIONAL REPORT: DATE OF PROCEDURE: 10/24/16 INDICATION FOR PROCEDURE: The patient with acute coronary syndrome with abnormal cardiac enzymes and abnormal EKG, assess for the presence of critical coronary artery disease. PROCEDURE: Coronary arteriography, left heart catheterization, left ventriculography, balloon angioplasty and placement of a 3.5 x 28 mm long Synergy drug-eluting stent post dilated to 4.6 to 4.7 mm proximally. DESCRIPTION OF PROCEDURE: The patient was interviewed and examined on the floor of the hospital where the risks and benefits were explained. He understood them and wished to proceed. He was brought to the cardiovascular laboratory where a formal time-out was performed. The right radial artery had already been accessed for eligibility to use as an approach and it was found to be acceptable. The right radial artery was prepped and draped in the sterile fashion, was anesthetized with 1% lidocaine. The right radial artery was cannulated and the right radial artery cocktail of nitroglycerin 300 mcg and verapamil 3 mg were given. He was already on IV heparin. Guiding diagnostic catheterization was performed utilizing a 5-Tr[place] TIG catheter. Following this , a CT was drawn and found to be subtherapeutic. Decision was made to intervene into the proximal right coronary artery and Angiomax bolus was given and an Angiomax drip was started. Guiding views were obtained utilizing initially a 6- Trin[place] ART4 curve catheter. I then switched to an AL1 for further guide catheter support. A 0.014 300 length [place] wire was advanced down the right coronary artery and eventually was able to cross the totally occluded proximal area. Attempts were made to pass a 1.5 x 8 mm long Emerge over the wire push catheter in order to make injections into the distal vessel because the kinking of the actual balloon injections were unable to made. Following this, the wire was reinserted down the right coronary artery and on removal of this catheter, flow could be seen to go into the mid vessel and also into the acute marginal branch confirming the intraluminal presence of the wire. Balloon angioplasty was then performed utilizing a 3.25 x 20 mm long NC Emerge balloon followed by placement of the stent 3.5 x 28 mm. A second wire was then advanced into the acute marginal branch and balloon angioplasty of that vessels performed with a 2.0 x 8 mm long Emerge balloon. Final balloon dilatations were made with a 3.5 x 12 NC Emerge in the distal and mid area with a 4.5 x 12 mm long NC Emerge type pressures in the more proximal area. The artery was then assessed after the balloon was withdrawn. The catheters were pulled and hemostasis was obtained with a wrist band. Reverse Barbeau sign was an A. The total contrast used was 425 cc of Omnipaque dye. The radiation exposure included 35 minutes of fluoro time. The air kerma radiation was 4392 milligray. The DAPA radiation was 39958 microgray per meter squared. RESULTS: HEMODYNAMIC DATA: Left heart catheterization - central aortic pressure was recorded at 108/65 with mean 84, left ventricular pressure 119/left ventricular end- diastolic pressure of 16. LEFT VENTRICULOGRAPHY: Performed in the NUÑEZ projection revealed moderate proximal to mid inferior wall hypokinesis with normal anterior and mid to distal inferior wall. There is question of mild apical hypokinesis. CORONARY ARTERIOGRAPHY: A. Left coronary artery: 1. Left main - widely patent, somewhat long in nature. No significant stenosis seen. 2. Left anterior descending artery - the left anterior descending artery had mild narrowing of 25% to 30% just prior to the first septal environmental compliance manager in the first diagonal branch. Past this point, there was no significant disease seen in the left anterior descending artery which supplied multiple septal perforators. The first diagonal branch supplied multiple thin branches off of it traversing laterally, that was small in caliber. There was no significant stenosis seen throughout the course of this vessel. 3. Circumflex artery - a nondominant vessel with a high small trifurcation marginal branch short in nature. The rest of the circumflex supplied a first and second thin obtuse marginal branch followed by a third obtuse marginal branch, which trifurcated. There was no significant disease seen with mild 20% to 25% narrowing in the mid portion of the circumflex. There was collateral blood flow seen from the left coronary artery to the right coronary artery through septal perforators retrograde filling the right coronary artery. B. Right coronary artery - totally occluded just in its proximal portion, on reconstitution of the right coronary artery, it supplied a moderate acute marginal branch, which bifurcated followed by a moderate sized posterior descending artery traversing to the apical region as well as continuation supplying posterior left ventricular branch. INTERVENTION IN TO TOTALLY OCCLUDED PROXIMAL RIGHT CORONARY ARTERY: Successful reconstitution of the proximal right coronary artery with balloon angioplasty and stenting with a 3.5 x 28 mm Synergy drug eluting stent with balloon angioplasty to the acute marginal branch with residual stenosis of 0% to the proximal right coronary artery and 40% to the ostium of the acute marginal branch with TIMI3 flow and no dissection seen. OVERALL ASSESSMENT: Significant single vessel disease with totally occluded proximal right coronary artery with collateralization seen from the left to the right. Successful reconstitution with stenting of the proximal to mid right coronary artery as described above with balloon angioplasty to the acute marginal branch. The patient will be maintained on dual antiplatelet therapy. I would recommend this for most likely 30 months given the acute presentation of his acute coronary syndrome and smoking history. Aggressive risk factor management with high dose statin therapy and smoking cessation is paramount to his wellbeing. CC: Dr. Patrick Montes; Dr. Sawyer Hinojosa* [id number]/[facility] #: [id number] MTDSohan
== END 2016-10-26 10:30 | disposition home or self-care (01) | DRG 174 ==
LOC: ED 07:21 → MEDTELE 10:44 → OBSVTOIN 10-24 09:30 → ICU 10-24 10:42 → MEDTELE 10-25 12:10
PROVIDERS: ADMIT Internal Medicine; ATTEND Internal Medicine
PROC: B2111ZZ Fluoroscopy of Multiple Coronary Arteries using Low Osmolar Contrast (ICD-10-PCS; 2016-10-24)
PROC: B2151ZZ Fluoroscopy of Left Heart using Low Osmolar Contrast (ICD-10-PCS; 2016-10-24)
PROC: 027034Z Dilation of Coronary Artery, One Artery with Drug-eluting Intraluminal Device, Percutaneous Approach (ICD-10-PCS; 2016-10-24)
PROC: 4A023N7 Measurement of Cardiac Sampling and Pressure, Left Heart, Percutaneous Approach (ICD-10-PCS; principal; 2016-10-24 07:30)
DX: I21.19 ST elevation (STEMI) myocardial infarction involving other coronary artery of inferior wall (principal); I10 Essential (primary) hypertension; F17.210 Nicotine dependence, cigarettes, uncomplicated; R40.2412 Glasgow coma scale score 13-15, at arrival to emergency department; R00.1 Bradycardia, unspecified; E66.3 Overweight; I25.10 Atherosclerotic heart disease of native coronary artery without angina pectoris; R73.9 Hyperglycemia, unspecified; R11.0 Nausea; T46.3X5A Adverse effect of coronary vasodilators, initial encounter; R61 Generalized hyperhidrosis; Z82.49 Family history of ischemic heart disease and other diseases of the circulatory system; Z83.3 Family history of diabetes mellitus; Z80.3 Family history of malignant neoplasm of breast; Z68.33 Body mass index [BMI] 33.0-33.9, adult; Z79.82 Long term (current) use of aspirin
CPT/HCPCS: 36415; 71010; 80053; 80061; 81003; 82550; 82553; 83605; 83735; 83874; 83880; 84436; 84443; 84484; 84520; 85025; 85379; 85730; 87641; 93005; 93458; A9270-GY; C1725; C1769; C1876; C1887; C9600-RC; G0378; J1327; J1644; J2001; J2250; J2405; J3010